=== PATIENT | female | born 1990 | race African-American/Black ===

== ENCOUNTER 2023-04-18 11:36 | Emergency (ER) | payer OTHER ==
[2023-04-18 11:52] VITALS: BP 121/78; PULSE 93; RESP 18; TEMP 98.1; BMI 30.4
[2023-04-18] MEDS ORDERED: ALBUTEROL SO4 2.5/IPRATROPIUM 0.5 INH SOL 3 ML VIAL.NEB. NEB ONE ×2 (12:05→12:12)
== END 2023-04-18 13:03 | disposition home or self-care (01) ==
LOC: JER 11:36
PROC: 3E0F7GC Introduction of Other Therapeutic Substance into Respiratory Tract, Via Natural or Artificial Opening (ICD-10-PCS; principal; 2023-04-18)
DX: R07.89 Other chest pain (principal); R09.81 Nasal congestion; J02.9 Acute pharyngitis, unspecified; J45.901 Unspecified asthma with (acute) exacerbation; Z20.822 Contact with and (suspected) exposure to COVID-19
CPT/HCPCS: 0241U-QW; 99283-25